=== PATIENT | female | born 1970 | race Caucasian/White ===

== ENCOUNTER 2020-06-28 09:18 | Outpatient (CLI) | payer OTHER ==
[2020-06-28] MEDS ORDERED: iohexol 300mg/ml 100ml inj. ONE (09:43)
== END 2020-06-29 14:29 | disposition home or self-care (01) ==
LOC: 64 CT 09:18
PROVIDERS: ATTEND Physical Medicine & Rehabilitation Pain Medicine
DX: S34.109A Unspecified injury to unspecified level of lumbar spinal cord, initial encounter (principal); M54.16 Radiculopathy, lumbar region; M48.061 Spinal stenosis, lumbar region without neurogenic claudication; X58.XXXA Exposure to other specified factors, initial encounter; Y93.89 Activity, other specified; Y92.89 Other specified places as the place of occurrence of the external cause; Y99.8 Other external cause status
CPT/HCPCS: 72120; 72132; Q9967